=== PATIENT | male | born 1970 | race Two or more races ===

== ENCOUNTER 2017-06-05 23:18 | Emergency (ER) | payer MEDICAID ==
[~2017-06-05] VITALS: Ht 182.9 cm; Wt 83.9 kg
[~2017-06-05 23:18] MED LIST: OLAN20TA3 PO; QUET100T PO; QUET400T PO; RISP0.253 PO; RISP2TAB5 PO
--- NOTE | 2017-06-05 23:59 | NUR ---
CALLED X2; NO ANSWER
--- NOTE | 2017-06-06 00:11 | NUR ---
BRAEDEN AGAIN; NOT IN LOBBY
--- NOTE | 2017-06-06 00:45 | NUR ---
TO BED 8 A 46 YO MALE PATIENT BIBSELF AND REPORTS "FEELING SUICIDAL BECAUSE MY LEFT ME WITH THE KIDS 2 DAYS AGO." PLAN IS TO "JUMP IN FRONT OF A TRUCK." PATIENT WITH HISTORY OF BIPOLAR AND SCHIZOPHRENIA, WITH PRIOR HISTORY OF SUICIDE ATTEMPT. PATIENT IS ALERT, RESPONSIVE. NAD NOTED. VSS. SAFETY AND SUICIDE PRECAUTIONS IN PLACE.
[2017-06-06 01:00] LABS: BASOPHILS # (AUTO) 0.1 /CMM (0.0-0.2); BASOPHILS % (AUTO) 0.5 % (0.0-2.0); EOSINOPHILS # (AUTO) 0.2 /CMM (0.0-0.7); EOSINOPHILS % (AUTO) 1.8 % (0.0-6.0); HEMATOCRIT 44 % (39-51); HEMOGLOBIN 14.1 g/dL (13.5-17.5); LYMPHOCYTES # (AUTO) 3.8 /CMM (0.8-4.8); MEAN CORPUSCULAR HEMOGLOBIN 27 PG (26.0-33.0); MEAN CORPUSCULAR HGB CONC 32 g/dl (31.0-36.0); MEAN CORPUSCULAR VOLUME 83 fL (80-96); MONOCYTES # (AUTO) 1.3 /CMM (0.1-1.30); MONOCYTES % (AUTO) 11.4 % (2.0-12.0); NEUTROPHILS # (AUTO) 6.5 /CMM (1.8-8.9); NEUTROPHILS % (AUTO) 54.3 % (43.0-81.0); PLATELET COUNT (AUTO) 420 /CMM (150-450); RDW COEFFICIENT OF VARIATION 20.3 (11.5-15.0); RED BLOOD CELL COUNT(AUTO) 5.31 MIL/uL (4.5-6.0); WHITE BLOOD COUNT (AUTO) 11.9 K/uL (4.3-11.0)
[2017-06-06 01:12] LABS: CALCIUM, SERUM 8.8 mg/dL (8.5-10.1); CREATININE 0.9 mg/dL (0.6-1.3)
[2017-06-06 01:17] LABS: ALBUMIN 3.9 g/dL (3.4-5.0); BILIRUBIN,DIRECT 0.1 mg/dL (0.0-0.2); BILIRUBIN,TOTAL 0.2 mg/dL (0.2-1.0); TOTAL PROTEIN, SERUM 8.7 g/dL (6.4-8.2)
[2017-06-06 01:18] LABS: SALICYLATE 2.6 mg/dL (2.8-20.0)
--- NOTE | 2017-06-06 01:20 | NUR ---
called Art crisis team
--- NOTE | 2017-06-06 02:06 | NUR ---
Art, STAFF RESEARCH SCIENTIST, at bedside with patient.
--- NOTE | 2017-06-06 04:12 | NUR ---
PATIENT IS SLEEPING AT THIS TIME.
--- NOTE | 2017-06-06 06:47 | NUR ---
PATIENT IN BED, VSS, NAD NOTED. SAFETY MAINTAINED.
--- NOTE | 2017-06-06 07:30 | NUR ---
PT DISCHARGED IN STABLE CONDITION. PROVIDED WITH LAB RESULTS PER REQUEST.
[2017-06-06 07:46] VITALS: BP 127/74
== END 2017-06-06 07:47 | disposition home or self-care (01) ==
LOC: ER 23:19
DX: R45.851 Suicidal ideations (principal); F31.9 Bipolar disorder, unspecified; F20.9 Schizophrenia, unspecified
CPT/HCPCS: 36415; 80048-TC; 80076-TC; 80305; 85025-TC; A4606; G0480; Z7610

== ENCOUNTER 2017-08-07 18:45 | Emergency (ER) | payer MEDICAID ==
[~2017-08-07] VITALS: Ht 182.9 cm; Wt 95.3 kg
--- NOTE | 2017-08-07 18:52 | NUR ---
PT AMBULATORY TO ER BEDB 14. ALCOHOL INTOXICATION C/O SUICIDAL IDEATION PLAN TO JUMP THROUGH TRAFFIC. PT IS AGITATED STATING "IM GONNA KILL MYSELF. WATCH." GOWNED AND PLACED ON MONITOR. STABLE VITAL. SI PRECAUTION. AWAITING MD LEIVA.
[2017-08-07 19:11] LABS: BASOPHILS # (AUTO) 0.1 /CMM (0.0-0.2); BASOPHILS % (AUTO) 0.6 % (0.0-2.0); EOSINOPHILS # (AUTO) 0.8 /CMM (0.0-0.7); EOSINOPHILS % (AUTO) 6.5 % (0.0-6.0); HEMATOCRIT 42 % (39-51); HEMOGLOBIN 13.4 g/dL (13.5-17.5); LYMPHOCYTES # (AUTO) 5.4 /CMM (0.8-4.8); LYMPHOCYTES % (AUTO) 42.6 % (20.0-44.0); MEAN CORPUSCULAR HEMOGLOBIN 27 PG (26.0-33.0); MEAN CORPUSCULAR HGB CONC 32 g/dl (31.0-36.0); MEAN CORPUSCULAR VOLUME 84 fL (80-96); MONOCYTES % (AUTO) 7.8 % (2.0-12.0); NEUTROPHILS # (AUTO) 5.4 /CMM (1.8-8.9); NEUTROPHILS % (AUTO) 42.5 % (43.0-81.0); PLATELET COUNT (AUTO) 330 /CMM (150-450); RDW COEFFICIENT OF VARIATION 20.1 (11.5-15.0); RED BLOOD CELL COUNT(AUTO) 4.95 MIL/uL (4.5-6.0); WHITE BLOOD COUNT (AUTO) 12.6 K/uL (4.3-11.0)
[2017-08-07 19:12] LABS: APPEARANCE,URINE CLEAR (CLEAR); BILIRUBIN,URINE NEGATIVE (NEGATIVE); BLOOD, URINE NEGATIVE Ery/uL (NEGATIVE); COLOR,URINE YELLOW (YELLOW); KETONES,URINE NEGATIVE (NEGATIVE); LEUKOCYTE ESTERASE ,URINE NEGATIVE (NEGATIVE); NITRITE, URINE NEGATIVE (NEGATIVE); PH,URINE 5.5 (5.0-8.0); PROTEIN,URINE NEGATIVE (NEGATIVE); UGLUCOSE NEGATIVE (NEGATIVE); UROBILINOGEN,URINE 0.2 EU/dL (0.2)
[2017-08-07 19:22] LABS: CALCIUM, SERUM 7.4 mg/dL (8.5-10.1); CREATININE 0.9 mg/dL (0.6-1.3); POTASSIUM 3.8 mmol/L (3.5-5.1)
[2017-08-07 19:29] LABS: ALBUMIN 3.5 g/dL (3.4-5.0); BILIRUBIN,DIRECT 0.1 mg/dL (0.0-0.2); BILIRUBIN,TOTAL 0.3 mg/dL (0.2-1.0); TOTAL PROTEIN, SERUM 7.9 g/dL (6.4-8.2)
[2017-08-07 19:30] LABS: SALICYLATE 2.2 mg/dL (2.8-20.0)
[2017-08-07] MEDS ORDERED: LORAZEPAM 1 MG TABLET PO ONE ×2 (20:00→21:30)
--- NOTE | 2017-08-07 21:20 | NUR ---
PT IS SLEEPING, EASILY AROUSABLE. CALM. RESTRAINTS DISCONTINUED PER ERMD VERBAL ORDER. WILL CONTINUE TO MONITOR.
--- NOTE | 2017-08-07 23:40 | NUR ---
REPORT TO CHARGE NURSE BE FOR JAIR.
--- NOTE | 2017-08-08 05:06 | NUR ---
RASHAAD CALLED FOR EVAL.
[2017-08-08] MEDS ORDERED: LORAZEPAM 1 MG TABLET ONE (09:05)
--- NOTE | 2017-08-08 09:16 | NUR ---
CALLED [facility] FOR UPDATE ON BED - WAS INFORMED THAT THE PATIENTS INFORMATION IS GOING TO BE REVIEWED OF NOW AND WE WILL BE CALLED BACK WITH A BED
[2017-08-08] MEDS ORDERED: LORAZEPAM 1 MG TABLET PO ONE (09:30)
--- NOTE | 2017-08-08 10:27 | NUR ---
CALLED [facility] [phone] INTAKE WILL ACCEPT
--- NOTE | 2017-08-08 10:41 | NUR ---
GAVE REPORT TO ALEXA ESQUIVEL FOR REPORT
--- NOTE | 2017-08-08 10:43 | NUR ---
ACCEPTING DR AT [facility] IS DR WEBER
--- NOTE | 2017-08-08 12:15 | NUR ---
Patient is resting comfortably in bed with eyes closed. Easily aroused. VSS
[2017-08-08 12:16] VITALS: BP 126/79
--- NOTE | 2017-08-08 12:55 | NUR ---
LUNCH TRAY AT
--- NOTE | 2017-08-08 13:31 | NUR ---
REQUEST MD GIVENS 0130 BLOOD DRAW Addendum: 08/08/17 at 1332 by BRENDA 1330
--- NOTE | 2017-08-08 14:19 | NUR ---
GAVE REPORT TO MYKEL ALCOHOL LEVEL 75
== END 2017-08-08 14:37 ==
LOC: ER 18:46
DX: R45.851 Suicidal ideations (principal); F10.10 Alcohol abuse, uncomplicated; E83.51 Hypocalcemia; D64.9 Anemia, unspecified; F31.9 Bipolar disorder, unspecified; F20.9 Schizophrenia, unspecified
CPT/HCPCS: 36415 ×2; 80048; 80076; 80305; 80329; 81001; 85025; 99285; A4606; G0480 ×4; Z7610; 81000-TC

== ENCOUNTER 2017-09-03 21:23 | Emergency (ER) | payer MEDICAID ==
[~2017-09-03] VITALS: Ht 177.8 cm; Wt 90.7 kg
--- NOTE | 2017-09-03 21:36 | NUR ---
PT BIB FRIEND TO ER BED 09. C/O DEPRESSION W/ SI. PLAN IS TO JUMP OFF A BRIDGE. PT IS CALM. COOPERATIVE TO STAFF. STABLE VITALS. AWAITING MD LEIVA.
--- NOTE | 2017-09-03 22:13 | NUR ---
CATALYST SUPERVISOR AT BEDSIDE FOR BLOOD DRAW.
[2017-09-03 22:20] LABS: BASOPHILS # (AUTO) 0.1 /CMM (0.0-0.2); BASOPHILS % (AUTO) 0.8 % (0.0-2.0); EOSINOPHILS # (AUTO) 0.4 /CMM (0.0-0.7); EOSINOPHILS % (AUTO) 3.2 % (0.0-6.0); HEMATOCRIT 44 % (39-51); HEMOGLOBIN 14.3 g/dL (13.5-17.5); LYMPHOCYTES # (AUTO) 3.2 /CMM (0.8-4.8); LYMPHOCYTES % (AUTO) 28.5 % (20.0-44.0); MEAN CORPUSCULAR HEMOGLOBIN 28 PG (26.0-33.0); MEAN CORPUSCULAR HGB CONC 33 g/dl (31.0-36.0); MEAN CORPUSCULAR VOLUME 85 fL (80-96); MONOCYTES # (AUTO) 1.1 /CMM (0.1-1.30); MONOCYTES % (AUTO) 9.6 % (2.0-12.0); NEUTROPHILS # (AUTO) 6.5 /CMM (1.8-8.9); NEUTROPHILS % (AUTO) 57.9 % (43.0-81.0); PLATELET COUNT (AUTO) 283 /CMM (150-450); RDW COEFFICIENT OF VARIATION 18.6 (11.5-15.0); RED BLOOD CELL COUNT(AUTO) 5.13 MIL/uL (4.5-6.0); WHITE BLOOD COUNT (AUTO) 11.3 K/uL (4.3-11.0)
[2017-09-03 22:24] LABS: APPEARANCE,URINE CLEAR (CLEAR); BILIRUBIN,URINE NEGATIVE (NEGATIVE); BLOOD, URINE NEGATIVE Ery/uL (NEGATIVE); COLOR,URINE YELLOW (YELLOW); KETONES,URINE TRACE (NEGATIVE); LEUKOCYTE ESTERASE ,URINE NEGATIVE (NEGATIVE); NITRITE, URINE NEGATIVE (NEGATIVE); PH,URINE 5.5 (5.0-8.0); PROTEIN,URINE NEGATIVE (NEGATIVE); UGLUCOSE TRACE mg/dL (NEGATIVE); UROBILINOGEN,URINE 0.2 EU/dL (0.2)
[2017-09-03 22:30] LABS: BACTERIA,URINE None seen /HPF (None Seen); RBC,URINE NONE SEEN /HPF (0-2); SQUAMOUS EPITHELIAL CELL,UR Few /HPF (None Seen); URIC ACID CRYSTALS,URINE Many /HPF (None Seen); WBC,URINE NONE SEEN /HPF (0-3)
[2017-09-03 22:33] LABS: CALCIUM, SERUM 8.2 mg/dL (8.5-10.1); CARBON DIOXIDE 29 mmol/L (21-32); CHLORIDE 100 mmol/L (98-107); CREATININE 1.1 mg/dL (0.6-1.3); GLUCOSE 117 mg/dL (74-106); POTASSIUM 3.7 mmol/L (3.5-5.1); SODIUM SERUM 137 mmol/L (136-145); UREA NITROGEN, BLOOD 17 mg/dL (7-18)
[2017-09-03 22:38] LABS: ALANINE AMINOTRANSFERASE 67 U/L (12-78); ALBUMIN 3.8 g/dL (3.4-5.0); ALCOHOL, BLOOD 49 mg/dL (0-0); ALKALINE PHOSPHATASE 106 U/L (46-116); ASPARTATE AMINOTRANSFERASE 76 U/L (15-37); BILIRUBIN,DIRECT 0.1 mg/dL (0.0-0.2); BILIRUBIN,TOTAL 0.3 mg/dL (0.2-1.0); TOTAL PROTEIN, SERUM 8.2 g/dL (6.4-8.2)
[2017-09-03 22:40] LABS: ACETAMINOPHEN < 2 ug/ml (10-30); SALICYLATE 1.9 mg/dL (2.8-20.0)
--- NOTE | 2017-09-03 22:51 | NUR ---
DR DUTTA AT BEDSIDE FOR EVAL.
--- NOTE | 2017-09-03 23:40 | NUR ---
ART SALVATIONIST AT BEDSIDE FOR PSYCH EVAL.
--- NOTE | 2017-09-03 23:52 | NUR ---
REPORT TO CHARGE NURSE BE FOR JAIR.
--- NOTE | 2017-09-04 01:31 | NUR ---
PATIENT IS ACCEPTED AT [facility] BY DR CLARK. NUMBER FOR REPORT [phone] EXT [phone]. ASK FOR JASONHarrison MURCIA RN.
--- NOTE | 2017-09-04 01:38 | NUR ---
CALLED K[facility] FOR S TRANSPORT TO [facility]. ETA 3-4AM. TRIP#[id number]
[2017-09-04 03:13] VITALS: BP 134/104
--- NOTE | 2017-09-04 03:18 | NUR ---
Patient discharged by [facility] for transport to [facility] in stable condition. Written and verbal after care instructions given. Patient verbalizes understanding of instruction. VSS, NAD noted on DC. Denies complaint on DC.
== END 2017-09-04 03:20 ==
LOC: ER 21:25
DX: R45.851 Suicidal ideations (principal); F31.9 Bipolar disorder, unspecified; F20.9 Schizophrenia, unspecified
CPT/HCPCS: 36415; 80048; 80076; 80305; 80329; 81001; 85025; 99285; A4606; G0480 ×2; Z7610; 81000-TC

== ENCOUNTER 2018-04-29 19:00 | Emergency (ER) | payer OTHER ==
[~2018-04-29] VITALS: Ht 182.9 cm; Wt 88.5 kg
[2018-04-29 19:10] VITALS: BP 133/86
--- NOTE | 2018-04-29 19:18 | NUR ---
Patient eloped from facility. ER MD notified.
== END 2018-04-29 19:22 | disposition left against medical advice (07) ==
LOC: ER 19:03
DX: Z53.21 Procedure and treatment not carried out due to patient leaving prior to being seen by health care provider (principal)
CPT/HCPCS: A4606; Z7610

== ENCOUNTER 2018-12-25 00:22 | Emergency (ER) | payer MEDICAID, OTHER ==
[~2018-12-25] VITALS: Ht 182.9 cm; Wt 83.9 kg
--- NOTE | 2018-12-25 00:34 | NUR ---
pt bibs. c/o "feeling suicidal" -plan -hi. aox4. ambulatory. voluntary admission.
[2018-12-25 02:27] LABS: APPEARANCE,URINE CLOUDY (CLEAR); BILIRUBIN,URINE 1+ (NEGATIVE); BLOOD, URINE 1+ Ery/uL (NEGATIVE); COLOR,URINE DARK YELLO (YELLOW); KETONES,URINE NEGATIVE (NEGATIVE); LEUKOCYTE ESTERASE ,URINE TRACE (NEGATIVE); NITRITE, URINE NEGATIVE (NEGATIVE); PROTEIN,URINE 2+ mg/dl (NEGATIVE); UGLUCOSE NEGATIVE (NEGATIVE); UROBILINOGEN,URINE 0.2 EU/dL (0.2)
[2018-12-25 02:37] LABS: BACTERIA,URINE Many /HPF (None Seen); SQUAMOUS EPITHELIAL CELL,UR Rare /HPF (None Seen); WBC,URINE TOO NUMEROUS TO COUN /HPF (0-3)
[2018-12-25 02:38] LABS: BASOPHILS # (AUTO) 0.1 /CMM (0.0-0.2); BASOPHILS % (AUTO) 0.5 % (0.0-2.0); EOSINOPHILS % (AUTO) 0.3 % (0.0-6.0); HEMATOCRIT 50 % (39-51); HEMOGLOBIN 16.9 g/dL (13.5-17.5); LYMPHOCYTES % (AUTO) 15.5 % (20.0-44.0); MEAN CORPUSCULAR HGB CONC 34 g/dl (31.0-36.0); MEAN CORPUSCULAR VOLUME 93 fL (80-96); MONOCYTES # (AUTO) 1.6 /CMM (0.1-1.30); MONOCYTES % (AUTO) 12.9 % (2.0-12.0); NEUTROPHILS % (AUTO) 70.8 % (43.0-81.0); PLATELET COUNT (AUTO) 229 /CMM (150-450); RED BLOOD CELL COUNT(AUTO) 5.34 MIL/uL (4.5-6.0); WHITE BLOOD COUNT (AUTO) 12.7 K/uL (4.3-11.0)
[2018-12-25 02:46] LABS: CALCIUM, SERUM 9.1 mg/dL (8.5-10.1); CARBON DIOXIDE 30 mmol/L (21-32); CHLORIDE 99 mmol/L (98-107); CREATININE 0.8 mg/dL (0.6-1.3); GLUCOSE 112 mg/dL (74-106); POTASSIUM 3.9 mmol/L (3.5-5.1); SODIUM SERUM 136 mmol/L (136-145); UREA NITROGEN, BLOOD 13 mg/dL (7-18)
[2018-12-25 02:51] LABS: ALANINE AMINOTRANSFERASE 65 U/L (12-78); ALBUMIN 4.1 g/dL (3.4-5.0); ALCOHOL, BLOOD < 3 mg/dL (0-0); ALKALINE PHOSPHATASE 81 U/L (46-116); ASPARTATE AMINOTRANSFERASE 85 U/L (15-37); BILIRUBIN,DIRECT 0.2 mg/dL (0.0-0.2); BILIRUBIN,TOTAL 0.8 mg/dL (0.2-1.0); TOTAL PROTEIN, SERUM 8.8 g/dL (6.4-8.2)
[2018-12-25 02:53] LABS: ACETAMINOPHEN 0 ug/ml (10-30); SALICYLATE 0.8 mg/dL (2.8-20.0)
[2018-12-25] MEDS ORDERED: CEFTRIAXONE 1 G VIAL IM ONE (05:00)
[2018-12-25] MEDS ORDERED: CEFTRIAXONE 1 G VIAL ONE (05:12)
--- NOTE | 2018-12-25 06:19 | NUR ---
PT ACCEPTED TO [facility] DR. EDUARDO GRANT TO UNIT EXT [phone]
--- NOTE | 2018-12-25 06:23 | NUR ---
CALLED [facility] FOR S TRANSPORT TO [facility]. 0745 ETA RUN #: [id number]
--- NOTE | 2018-12-25 06:25 | NUR ---
JAELYN FROM [facility] AT [facility] CALLED TO LET US KNOW THAT THEY CAN NO LONGER ACCEPT AT THIS TIME. TOLD US TO CALL LATER IN THE MORNING AFTER DISCHARGES TO SEE IF BEDS OPENED UP. INTAKE #
--- NOTE | 2018-12-25 06:27 | NUR ---
CANCELLED BLS TRANSPORT
--- NOTE | 2018-12-25 11:14 | NUR ---
SPOKE TO INTAKE AND SHE INFORMED ME THAT BEDS WERE AVAILABLE. PLEASE CALL THE CHARGE NURSE ON UNIT 2 TO GIVE REPORT [phone] EX [phone]
--- NOTE | 2018-12-25 11:24 | NUR ---
SPOKE TO SAMUEL FROM [facility]. SET UP BLS TRANSPORT. ETA 30 MINUTES. TRIP NUMBER [id number].
--- NOTE | 2018-12-25 11:26 | NUR ---
REPORT GIVEN TO MAC GUZMAN OF [facility] FOR JAIR.
--- NOTE | 2018-12-25 11:54 | NUR ---
REPORT GIVEN TO EMS FOR TRANSFER TO [facility].
[2018-12-25 11:55] VITALS: BP 142/92
== END 2018-12-25 11:58 ==
LOC: ER 00:24
DX: R45.851 Suicidal ideations (principal); F10.10 Alcohol abuse, uncomplicated; N39.0 Urinary tract infection, site not specified; Z79.899 Other long term (current) drug therapy; Y90.0 Blood alcohol level of less than 20 mg/100 ml
CPT/HCPCS: 36415; 80048; 80076; 80305; 80307; 80329; 81001; 85025; 87086; 96372; 99285; G0480; J0696; 81000-TC

== ENCOUNTER 2019-07-03 11:54 | Emergency (ER) | payer OTHER ==
[~2019-07-03] VITALS: Ht 180.3 cm; Wt 86.2 kg
[2019-07-03 12:27] LABS: BASOPHILS # (AUTO) 0.3 /CMM (0.0-0.2); BASOPHILS % (AUTO) 2.4 % (0.0-2.0); EOSINOPHILS % (AUTO) 2.2 % (0.0-6.0); HEMATOCRIT 47 % (39-51); HEMOGLOBIN 16.1 g/dL (13.5-17.5); LYMPHOCYTES # (AUTO) 1.5 /CMM (0.8-4.8); MEAN CORPUSCULAR HGB CONC 34 g/dl (31.0-36.0); MEAN CORPUSCULAR VOLUME 94 fL (80-96); MONOCYTES # (AUTO) 1.3 /CMM (0.1-1.30); MONOCYTES % (AUTO) 10.8 % (2.0-12.0); NEUTROPHILS # (AUTO) 8.4 /CMM (1.8-8.9); NEUTROPHILS % (AUTO) 71.6 % (43.0-81.0); PLATELET COUNT (AUTO) 304 /CMM (150-450); RED BLOOD CELL COUNT(AUTO) 4.99 MIL/uL (4.5-6.0); WHITE BLOOD COUNT (AUTO) 11.8 K/uL (4.3-11.0)
[2019-07-03] MEDS ORDERED: LORAZEPAM 1 MG TABLET ONE (12:28)
[2019-07-03 12:30] VITALS: BP 167/109
[2019-07-03] MEDS ORDERED: LORAZEPAM 1 MG TABLET PO ONE (12:30)
--- NOTE | 2019-07-03 12:31 | NUR ---
PATIENT CAME IN TO THE ER C/O "IM FELLING SUICIDAL." HEARING VOICES. +PLAN TO OD ON PILLS. ON ROOM AIR, BREATHING EVENLY AND UNLABORED, CONNECTED TO THE MONITOR AND PULSE OX. WILL CONTINUE TO MONITOR ACCORDINGLY.
[2019-07-03 12:36] LABS: CARBON DIOXIDE 32 mmol/L (21-32); CHLORIDE 100 mmol/L (98-107); SODIUM SERUM 138 mmol/L (136-145)
[2019-07-03 12:37] LABS: CALCIUM, SERUM 9.1 mg/dL (8.5-10.1); CREATININE 0.8 mg/dL (0.6-1.3); GLUCOSE 134 mg/dL (74-106); UREA NITROGEN, BLOOD 14 mg/dL (7-18)
[2019-07-03 12:42] LABS: ALANINE AMINOTRANSFERASE 52 U/L (12-78); ALBUMIN 4.2 g/dL (3.4-5.0); ALCOHOL, BLOOD < 3 mg/dL (0-0); ALKALINE PHOSPHATASE 86 U/L (46-116); ASPARTATE AMINOTRANSFERASE 50 U/L (15-37); BILIRUBIN,DIRECT 0.3 mg/dL (0.0-0.2); BILIRUBIN,TOTAL 0.7 mg/dL (0.2-1.0); TOTAL PROTEIN, SERUM 8.7 g/dL (6.4-8.2)
[2019-07-03 12:43] LABS: ACETAMINOPHEN 0 ug/ml (10-30); SALICYLATE 1.1 mg/dL (2.8-20.0)
--- NOTE | 2019-07-03 12:44 | NUR ---
sitter at bedside for constant monitoring.
--- NOTE | 2019-07-03 12:44 | NUR ---
urine collected and sent to lab
[2019-07-03 12:53] LABS: APPEARANCE,URINE Clear (CLEAR); BILIRUBIN,URINE Negative (NEGATIVE); BLOOD, URINE Negative Ery/uL (NEGATIVE); COLOR,URINE Yellow (YELLOW); KETONES,URINE Negative (NEGATIVE); LEUKOCYTE ESTERASE ,URINE Negative (NEGATIVE); NITRITE, URINE Negative (NEGATIVE); PROTEIN,URINE Negative (NEGATIVE); UGLUCOSE 100 MG/DL mg/dL (NEGATIVE); UROBILINOGEN,URINE 0.2 EU/dL (0.2)
--- NOTE | 2019-07-03 13:15 | NUR ---
Patient eloped from facility. ER MD notified. [employer] aware
--- NOTE | 2019-07-03 13:15 | NUR ---
MARCI CABALLERO, ALERTED NURSES STATION THAT HE WANTED TO LEAVE, YOVANNY FERMIN CALLED STAFF WERE UNABLE TO STOP HIM.
--- NOTE | 2019-07-03 13:18 | NUR ---
[facility] CALLED FOR ASSISTANCE
== END 2019-07-03 14:03 | disposition left against medical advice (07) ==
LOC: ER 11:54
DX: F31.9 Bipolar disorder, unspecified (principal); R45.851 Suicidal ideations; F20.9 Schizophrenia, unspecified; F10.10 Alcohol abuse, uncomplicated; F41.9 Anxiety disorder, unspecified; F15.10 Other stimulant abuse, uncomplicated; F13.10 Sedative, hypnotic or anxiolytic abuse, uncomplicated; Y90.0 Blood alcohol level of less than 20 mg/100 ml; Z79.899 Other long term (current) drug therapy
CPT/HCPCS: 36415; 80048; 80076; 80305; 80307; 80329; 81001; 85025; 99284; G0480; 81000-TC

== ENCOUNTER 2020-08-19 19:50 | Emergency (ER) | payer OTHER ==
[~2020-08-19] VITALS: Ht 175.3 cm; Wt 86.2 kg
--- NOTE | 2020-08-19 23:03 | NUR ---
GREGORIOID SWABBED, SENT TO LAB.
[2020-08-19 23:08] LABS: BASOPHILS # (AUTO) 0.3 /CMM (0.0-0.2); BASOPHILS % (AUTO) 2.6 % (0.0-2.0); EOSINOPHILS % (AUTO) 2.2 % (0.0-6.0); HEMATOCRIT 45 % (39-51); HEMOGLOBIN 14.8 g/dL (13.5-17.5); LYMPHOCYTES % (AUTO) 27.3 % (20.0-44.0); MEAN CORPUSCULAR HGB CONC 33 g/dl (31.0-36.0); MEAN CORPUSCULAR VOLUME 94 fL (80-96); MONOCYTES # (AUTO) 1.5 /CMM (0.1-1.30); MONOCYTES % (AUTO) 13.6 % (2.0-12.0); NEUTROPHILS % (AUTO) 54.3 % (43.0-81.0); PLATELET COUNT (AUTO) 244 /CMM (150-450); RED BLOOD CELL COUNT(AUTO) 4.78 MIL/uL (4.5-6.0)
[2020-08-19 23:19] LABS: BILIRUBIN,URINE SMALL (NEGATIVE); BLOOD, URINE Negative Ery/uL (NEGATIVE); COLOR,URINE YELLOW (YELLOW); LEUKOCYTE ESTERASE ,URINE Negative (NEGATIVE); NITRITE, URINE Negative (NEGATIVE); PH,URINE 5.5 (5.0-8.0); PROTEIN,URINE 30 mg/dl (NEGATIVE); UGLUCOSE 250 MG/DL mg/dL (NEGATIVE); UROBILINOGEN,URINE 0.2 EU/dL (0.2)
[2020-08-19 23:26] LABS: CALCIUM, SERUM 9.2 mg/dL (8.5-10.1); CARBON DIOXIDE 27 mmol/L (21-32); CHLORIDE 98 mmol/L (98-107); CREATININE 0.9 mg/dL (0.6-1.3); GLUCOSE 131 mg/dL (74-106); SODIUM SERUM 136 mmol/L (136-145); UREA NITROGEN, BLOOD 21 mg/dL (7-18)
[2020-08-19 23:29] LABS: BACTERIA,URINE Rare /HPF (None Seen); RBC,URINE NONE SEEN /HPF (0-2); SQUAMOUS EPITHELIAL CELL,UR Few /HPF (None Seen); WBC,URINE NONE SEEN /HPF (0-3)
[2020-08-19 23:32] LABS: ALANINE AMINOTRANSFERASE 37 U/L (12-78); ALBUMIN 3.9 g/dL (3.4-5.0); ALCOHOL, BLOOD 4 mg/dL (0-0); ALKALINE PHOSPHATASE 69 U/L (46-116); ASPARTATE AMINOTRANSFERASE 46 U/L (15-37); BILIRUBIN,DIRECT 0.2 mg/dL (0.0-0.2); BILIRUBIN,TOTAL 0.7 mg/dL (0.2-1.0); TOTAL PROTEIN, SERUM 8.5 g/dL (6.4-8.2)
[2020-08-19 23:33] LABS: ACETAMINOPHEN < 2 ug/ml (10-30)
--- NOTE | 2020-08-20 02:35 | NUR ---
CALL FROM [facility] BY DR BEAVERS. UNIT 2. # FOR REPORT [phone]
--- NOTE | 2020-08-20 03:03 | NUR ---
[facility] CALLED FOR TRANSPORT. TRIP# [id number]
--- NOTE | 2020-08-20 03:39 | NUR ---
[facility] CALLED WITH TRANSPORT INFO: [facility] ETA 60MIN
--- NOTE | 2020-08-20 03:53 | NUR ---
CALLED [facility]ANT[facility] AND GAVE REPORT TO MAC GOMEZ FOR JAIR
--- NOTE | 2020-08-20 04:30 | NUR ---
[facility] at bedside for transport to [facility].
[2020-08-20 05:46] VITALS: BP 112/62
== END 2020-08-20 05:46 ==
LOC: ER 19:50
DX: F31.30 Bipolar disorder, current episode depressed, mild or moderate severity, unspecified (principal); Z79.899 Other long term (current) drug therapy; Z20.828 Contact with and (suspected) exposure to other viral communicable diseases
CPT/HCPCS: 36415; 80048; 80076; 80299; 80307; 80320; 81001; 85025; 87426; 99283; C9803; G0480

== ENCOUNTER 2020-10-13 05:57 | Emergency (ER) | payer OTHER ==
[~2020-10-13] VITALS: Ht 182.9 cm; Wt 88.5 kg
[2020-10-13 06:12] VITALS: BP 147/90
--- NOTE | 2020-10-13 06:30 | NUR ---
BIBS FOR SI, W/ NO PLAN. REQUESTING MEDICAL CLEARANCE. PT AMBULATORY TO THE BATHROOM. URINE COLLECTED AD SENT TO THE LAB. PT WAS PLACED IN BED 14 W/ SI PRECAUTION AND SUPERVISION OF A SITTER. PT WAS GOWNED UP. ALL BELONGINGS TAKEN AWAY . VSS. WILL CONT TO MONITOR ,
--- NOTE | 2020-10-13 06:33 | NUR ---
CALLED LAB FOR URINE LOCAL COMPANY HAZMAT DRIVER
[2020-10-13 06:57] LABS: BASOPHILS % (AUTO) 0.3 % (0.0-2.0); EOSINOPHILS % (AUTO) 0.8 % (0.0-6.0); HEMATOCRIT 48 % (39-51); HEMOGLOBIN 16.3 g/dL (13.5-17.5); LYMPHOCYTES # (AUTO) 1.9 /CMM (0.8-4.8); LYMPHOCYTES % (AUTO) 19.4 % (20.0-44.0); MEAN CORPUSCULAR HGB CONC 34 g/dl (31.0-36.0); MEAN CORPUSCULAR VOLUME 93 fL (80-96); MONOCYTES % (AUTO) 9.9 % (2.0-12.0); NEUTROPHILS % (AUTO) 69.6 % (43.0-81.0); PLATELET COUNT (AUTO) 292 /CMM (150-450); RED BLOOD CELL COUNT(AUTO) 5.21 MIL/uL (4.5-6.0)
[2020-10-13 07:09] LABS: ALANINE AMINOTRANSFERASE 51 U/L (12-78); ALCOHOL, BLOOD < 3 mg/dL (0-0); ALKALINE PHOSPHATASE 84 U/L (46-116); ASPARTATE AMINOTRANSFERASE 39 U/L (15-37); BILIRUBIN,DIRECT 0.3 mg/dL (0.0-0.2); BILIRUBIN,TOTAL 0.9 mg/dL (0.2-1.0); CALCIUM, SERUM 8.9 mg/dL (8.5-10.1); CARBON DIOXIDE 28 mmol/L (21-32); CHLORIDE 100 mmol/L (98-107); CREATININE 0.8 mg/dL (0.6-1.3); GLUCOSE 208 mg/dL (74-106); POTASSIUM 3.6 mmol/L (3.5-5.1); SODIUM SERUM 138 mmol/L (136-145); TOTAL PROTEIN, SERUM 8.3 g/dL (6.4-8.2); UREA NITROGEN, BLOOD 19 mg/dL (7-18)
[2020-10-13 07:10] LABS: ACETAMINOPHEN 0 ug/ml (10-30)
[2020-10-13 07:18] LABS: BILIRUBIN,URINE NEGATIVE (NEGATIVE); COLOR,URINE DARK YELLOW (YELLOW); LEUKOCYTE ESTERASE ,URINE NEGATIVE (NEGATIVE); NITRITE, URINE POSITIVE (NEGATIVE); PH,URINE 5.5 (5.0-8.0); PROTEIN,URINE 30 mg/dl (NEGATIVE); UGLUCOSE 100 MG/DL mg/dL (NEGATIVE)
[2020-10-13 08:22] LABS: BACTERIA,URINE Few /HPF (None Seen); RBC,URINE 0-2 /HPF (0-2); SQUAMOUS EPITHELIAL CELL,UR Few /HPF (None Seen); WBC,URINE 0-2 /HPF (0-3)
[2020-10-13 08:23] LABS: MUCUS,URINE Few /LPF (None Seen)
--- NOTE | 2020-10-13 12:49 | NUR ---
"SS Consult: SS consult requested for SI W/O PLAN. SW met with pt. bedside. Pt. appears disheveled and is A&O X 4. Pt. he began experiencing SI about a month ago when my lost her kids. Pt. states he is homeless and does not want to live anymore. Pt. stated he is not with and has been experiencing homelessness for the past 6 months. SW explored pt.s plan for self-care. Pt. stated he sleeps anywhere and gets food from people. Pt. denies HI. Pt. denies hallucinations. Pt. has fair insight & poor judgment. SW explored pt.s Psych Hx. Patient stated he has been diasgnosed with Bipolar Disorder in the past and has been prescribed: Abilify, Seroquel, Wellbutrin, Depakote by a psychiatrist at [facility] [[address] [place] [address]; ]. SW offered voluntary psychiatric hospitalization. Pt. is agreeable to plan. Plan: SW referred pt. to [facility] [[address] [place] [address] ] FAX: [phone] for voluntary psychiatric treatment. SW will follow up as needed. Pt. signed homeless waiver & SW provided pt. with the following homeless resources and pt. was receptive: Substance Abuse resources provided included: [facility] Substance Abuse Self-Helpline ([facility]) ; CRI -HELP [address] [facility]. [place] [address] ; [facility] [address] [facility] [address] ; [facility] In[facility] [address] [facility] [address] ; [facility] [address] [facility] [address] ; [facility] [address] [facility] [address] ; [facility] [address] [facility] [address] ; [facility] Substance Abuse Helpline(SAS)-[facility] ; [facility] ; [facility] [place]; [facility] [place]; [facility] [place]; [facility] Chidi Veloz; [facility]; [facility] [place]; [facility] [place]; [facility], [facility]; Alcoholics Anonymous -SFV; Ns-Ysgn-Ylyhnkl ; Marijuana Anonymous -SFV; Narcotics Anonymous www.na.org. Year-round shelters: [facility] [address] [place], [place] [id number] ; [facility] [address] [place] [address]; [facility] Ntyqymb[address] [facility] [address] Winter Shelters: [facility] Provider: [employer] [place] Address: [address], [address] # of Beds: 47 Population Served: [facility] 6 | [facility] Danielle Brian [place] Provider: [facility] Address: [address], [address] # of Beds: 66 Population Served: [facility] [employer] [place] Provider: First to Serve Address: [address] [facility], [address] # of Beds: 56 Population Served: [facility] Juan OtiliaSara [place] Provider: /[facility]. [facility] Address: [address] [facility], [address] # of Beds: 49 Population Served: [facility] SPA 8 | [facility] Provider: First to Serve Address: [address] [facility] [place], [address] # of Beds: 37 Population Served: Co[employer]ictoriano Hygiene: [facility]: [address] [place] ; [facility] [address] [facility] [place] ; [facility] [address] [place] . Food Resources: [facility] at [facility]- [address] [place]; Meet Each Need with Dignity ([facility]) [address] [place]; [facility] Food Pantry [address] [facility]; [facility] [address] [facility]. Mental Health resources provided: [facility] [address] [place], [place] [address] ; [facility] [address] [facility] [address], [place], [place] [id number] ; Aruna Barajas [facility] [address] [address], [place] [id number] ; [facility] [address] [place], [place] [address] Healthcare Clinics: [facility] [address] [facility], [address] [place]. [place] ; [facility] [address] [facility] [address] [place] [address]; [facility] [address] [facility]. [place] [phone]"
--- NOTE | 2020-10-13 14:09 | NUR ---
ACCEPTED AT [facility]. # [phone] EXT [phone] SAN[place]AN[place].
--- NOTE | 2020-10-13 14:14 | NUR ---
[facility] Contact: Pt was accepted to [facility] and the pts psychiatrist will be Dr. Santizo and the pts burlapper will be Dr. Poole. Call Sissy for report at [phone] ext [phone].
--- NOTE | 2020-10-13 15:15 | NUR ---
CALLED [facility] FOR TRANSPORT TO [facility]. ETA IS [phone]
--- NOTE | 2020-10-13 15:52 | NUR ---
Pt was accepted to [facility] with the accepting doctors as: Dr. Hussein and Dr. Poole. Report will be given to Sissy ([phone] ext [phone]).
--- NOTE | 2020-10-13 16:12 | NUR ---
report given to Virgilio WATTS for tree
--- NOTE | 2020-10-13 16:12 | NUR ---
[facility] FOR [facility], NO DISTRESS NOTED. TRANSFERRED IN STABLE CONDITION.
== END 2020-10-13 16:13 ==
LOC: ER 05:57
DX: R45.851 Suicidal ideations (principal); F25.0 Schizoaffective disorder, bipolar type; Z91.14 Patient's other noncompliance with medication regimen; Z79.899 Other long term (current) drug therapy; Z20.822 Contact with and (suspected) exposure to COVID-19
CPT/HCPCS: 36415; 80048; 80076; 80299; 80307; 80320; 81001; 85025; 87086; 87426; 99285; C9803; G0480

== ENCOUNTER 2020-12-23 13:49 | Emergency (ER) | payer OTHER ==
[~2020-12-23] VITALS: Ht 182.9 cm; Wt 88.5 kg
--- NOTE | 2020-12-23 14:41 | NUR ---
COVID SWAB SENT.
[2020-12-23 15:01] LABS: BILIRUBIN,URINE NEGATIVE (NEGATIVE); COLOR,URINE YELLOW (YELLOW); LEUKOCYTE ESTERASE ,URINE NEGATIVE (NEGATIVE); NITRITE, URINE POSITIVE (NEGATIVE); PH,URINE 5.5 (5.0-8.0); PROTEIN,URINE NEGATIVE (NEGATIVE); UGLUCOSE >=1000 mg/dL (NEGATIVE); UROBILINOGEN,URINE 0.2 EU/dL (0.2)
[2020-12-23 15:19] LABS: FINE GRANULAR CASTS,URINE Few /LPF (None Seen); HYALINE CASTS, URINE Few /LPF (None Seen); RBC,URINE 0-2 /HPF (0-2); SQUAMOUS EPITHELIAL CELL,UR Few /HPF (None Seen); WBC,URINE 0-2 /HPF (0-3)
[2020-12-23 15:20] LABS: BACTERIA,URINE 1+ /HPF (None Seen)
[2020-12-23 15:20] LABS: BASOPHILS # (AUTO) 0.1 /CMM (0.0-0.2); BASOPHILS % (AUTO) 1.5 % (0.0-2.0); EOSINOPHILS % (AUTO) 2.6 % (0.0-6.0); HEMATOCRIT 42 % (39-51); HEMOGLOBIN 14.2 g/dL (13.5-17.5); LYMPHOCYTES # (AUTO) 2.6 /CMM (0.8-4.8); LYMPHOCYTES % (AUTO) 26.6 % (20.0-44.0); MEAN CORPUSCULAR HGB CONC 34 g/dl (31.0-36.0); MEAN CORPUSCULAR VOLUME 91 fL (80-96); MONOCYTES # (AUTO) 0.7 /CMM (0.1-1.30); MONOCYTES % (AUTO) 7.7 % (2.0-12.0); NEUTROPHILS % (AUTO) 61.6 % (43.0-81.0); PLATELET COUNT (AUTO) 221 /CMM (150-450); RED BLOOD CELL COUNT(AUTO) 4.62 MIL/uL (4.5-6.0); WHITE BLOOD COUNT (AUTO) 9.7 K/uL (4.3-11.0)
--- NOTE | 2020-12-23 15:28 | NUR ---
LAB CALLED PT COVID RESULT NEGATIVE.
[2020-12-23] MEDS ORDERED: LIDOCAINE /MPF 1% VIAL 5 ML VIAL ONE (15:29)
[2020-12-23] MEDS ORDERED: CEFTRIAXONE 1 G VIAL ONE (15:29)
[2020-12-23] MEDS: CEFTRIAXONE 1 G VIAL IM ONE (15:40)
[2020-12-23 15:41] LABS: ALANINE AMINOTRANSFERASE 74 U/L (12-78); ALBUMIN 3.3 g/dL (3.4-5.0); ALCOHOL, BLOOD 96 mg/dL (0-0); ALKALINE PHOSPHATASE 78 U/L (46-116); ASPARTATE AMINOTRANSFERASE 67 U/L (15-37); BILIRUBIN,DIRECT 0.1 mg/dL (0.0-0.2); BILIRUBIN,TOTAL 0.3 mg/dL (0.2-1.0); CALCIUM, SERUM 8.7 mg/dL (8.5-10.1); CARBON DIOXIDE 27 mmol/L (21-32); CHLORIDE 102 mmol/L (98-107); CREATININE 0.8 mg/dL (0.6-1.3); GLUCOSE 187 mg/dL (74-106); POTASSIUM 4.1 mmol/L (3.5-5.1); SODIUM SERUM 137 mmol/L (136-145); TOTAL PROTEIN, SERUM 7.5 g/dL (6.4-8.2); UREA NITROGEN, BLOOD 7 mg/dL (7-18)
[2020-12-23 15:45] LABS: ACETAMINOPHEN < 0 ug/ml (10-30)
--- NOTE | 2020-12-23 15:55 | NUR ---
ASSUMES PT CARE. BIBS TO ER BED 15. AAOX4. NOT IN RESP DISTRESS. AMBULATORY. CAME IN FOR SUICIDAL IDEATION W/ PLAN TO JUMP OF A BRIDGE. PER PT, HE HAS BEEN FEELING DEPRESSED AND HAVING RACING THOUGHTS BECAUSE HE HAVE BEEN OUT OF HIS MEDS. PT DENIES BITH AUDITORY AND VISUAL HALLUCINATIONS. DENIES HOMICIDAL IDEATION. PT IS SEEKING VOULNTARY INPTAIENT ADMISSION. MD WAS AT THE BEDSIDE FOR EVAL. ORDERS RECEIVED, NOTED AND CARRIED OUT.
[2020-12-23] MEDS ORDERED: QUETIAPINE FUMARATE 25 MG TABLET ONE (17:18)
[2020-12-23] MEDS ORDERED: BUPROPION XL 150 MG TAB.ER.24 PO ONE (17:18)
[2020-12-23] MEDS: QUETIAPINE FUMARATE 100 MG TABLET PO STA (17:26)
[2020-12-23] MEDS: buPROPion SR 150 MG TABLET.ER PO STA (17:26)
--- NOTE | 2020-12-23 20:00 | NUR ---
facesheet and clinicals faxed to [facility].
--- NOTE | 2020-12-23 23:28 | NUR ---
TRANSFER INFORMATION: PT ACCEPTED AT [facility] ACCEPTING MD CHEN/BERNARDO PHONE # FOR REPORT EXT [phone]
--- NOTE | 2020-12-23 23:32 | NUR ---
CALLED [facility] ETA 0030 HOURS
--- NOTE | 2020-12-24 00:13 | NUR ---
REPORT GIVEN TO [facility] FOR TRANSPORTATION JAIR
[2020-12-24 00:15] VITALS: BP 118/79
--- NOTE | 2020-12-24 00:15 | NUR ---
REPORT GIVEN TO MAC DIAL FROM [facility] FOR JAIR
== END 2020-12-24 00:20 ==
LOC: ER 13:49
DX: R45.851 Suicidal ideations (principal); N30.90 Cystitis, unspecified without hematuria; Z20.822 Contact with and (suspected) exposure to COVID-19; R73.9 Hyperglycemia, unspecified; F25.0 Schizoaffective disorder, bipolar type; Z91.14 Patient's other noncompliance with medication regimen; Z90.49 Acquired absence of other specified parts of digestive tract; Z79.899 Other long term (current) drug therapy
CPT/HCPCS: 36415; 80048; 80076; 80299; 80307; 80320; 81001; 85025; 87086; 87426; 96372; 99285; C9803; J0696; J3490; G0480

== ENCOUNTER 2020-12-30 23:24 | Emergency (ER) | payer OTHER ==
[~2020-12-30] VITALS: Ht 177.8 cm; Wt 66.7 kg
--- NOTE | 2020-12-31 01:13 | NUR ---
LAB WITH PT FOR BLOOD DRAW, COVID SWAB COMPLETED.
[2020-12-31 01:24] LABS: BASOPHILS % (AUTO) 0.4 % (0.0-2.0); EOSINOPHILS % (AUTO) 1.3 % (0.0-6.0); HEMATOCRIT 47 % (39-51); HEMOGLOBIN 15.5 g/dL (13.5-17.5); LYMPHOCYTES # (AUTO) 3.4 /CMM (0.8-4.8); LYMPHOCYTES % (AUTO) 30.1 % (20.0-44.0); MEAN CORPUSCULAR HGB CONC 33 g/dl (31.0-36.0); MEAN CORPUSCULAR VOLUME 93 fL (80-96); MONOCYTES # (AUTO) 1.5 /CMM (0.1-1.30); MONOCYTES % (AUTO) 13.2 % (2.0-12.0); NEUTROPHILS # (AUTO) 6.1 /CMM (1.8-8.9); PLATELET COUNT (AUTO) 286 /CMM (150-450); RED BLOOD CELL COUNT(AUTO) 5.04 MIL/uL (4.5-6.0); WHITE BLOOD COUNT (AUTO) 11.2 K/uL (4.3-11.0)
--- NOTE | 2020-12-31 02:07 | NUR ---
URINE COLLECTED. SENT TO LAB
[2020-12-31 02:43] LABS: BILIRUBIN,URINE NEGATIVE (NEGATIVE); COLOR,URINE YELLOW (YELLOW); LEUKOCYTE ESTERASE ,URINE NEGATIVE (NEGATIVE); NITRITE, URINE NEGATIVE (NEGATIVE); PROTEIN,URINE TRACE mg/dl (NEGATIVE); UGLUCOSE >=1000 mg/dL (NEGATIVE)
[2020-12-31 03:03] LABS: ALANINE AMINOTRANSFERASE 60 U/L (12-78); ALBUMIN 4.3 g/dL (3.4-5.0); ALCOHOL, BLOOD < 3 mg/dL (0-0); ALKALINE PHOSPHATASE 65 U/L (46-116); ASPARTATE AMINOTRANSFERASE 50 U/L (15-37); BILIRUBIN,DIRECT 0.5 mg/dL (0.0-0.2); BILIRUBIN,TOTAL 1.4 mg/dL (0.2-1.0); CARBON DIOXIDE 28 mmol/L (21-32); CHLORIDE 97 mmol/L (98-107); GLUCOSE 198 mg/dL (74-106); POTASSIUM 2.9 mmol/L (3.5-5.1); SODIUM SERUM 135 mmol/L (136-145); UREA NITROGEN, BLOOD 17 mg/dL (7-18)
[2020-12-31 03:06] LABS: ACETAMINOPHEN 0 ug/ml (10-30)
--- NOTE | 2020-12-31 03:06 | NUR ---
CLINICAL AND FACESHEET FAXED TO [facility] INTAKE FOR VOLUNTARY PSYCH ADMISSION.
[2020-12-31 03:17] LABS: BACTERIA,URINE None seen /HPF (None Seen); RBC,URINE 0-2 /HPF (0-2); SQUAMOUS EPITHELIAL CELL,UR Few /HPF (None Seen)
[2020-12-31 03:18] LABS: MUCUS,URINE Few /LPF (None Seen); URINE AMORPHOUS URATE Many /HPF (None Seen)
--- NOTE | 2020-12-31 05:19 | NUR ---
PT TO BED, SITTER WITHIN LINE OF SIGHT. PT WANDED. PERSONAL BELONGINGS PLACED IN LOCKER. PT AOX4 RR EVEN AND UNLABORED. NO SOB NOTED. NO NVD AT THIS TIME.
[2020-12-31] MEDS ORDERED: POTASSIUM CHLORIDE 20 MEQ TAB.PRT.SR PO ONE ×2 (05:25→05:30)
[2020-12-31 05:50] VITALS: BP 133/78
--- NOTE | 2020-12-31 06:03 | NUR ---
PT DENIES SI AND HI. REQUESTING TO LEAVE.
== END 2020-12-31 06:05 | disposition home or self-care (01) ==
LOC: ER 23:26
DX: R45.851 Suicidal ideations (principal); Z20.822 Contact with and (suspected) exposure to COVID-19; F25.0 Schizoaffective disorder, bipolar type; Z86.19 Personal history of other infectious and parasitic diseases; Z79.899 Other long term (current) drug therapy
CPT/HCPCS: 36415; 80048; 80076; 80299; 80307; 80320; 81001; 85025; 87086; 87426; 99285; C9803; G0480